=== PATIENT | female | born 1985 | race Caucasian/White ===

== ENCOUNTER 2019-01-28 17:44 | Inpatient (IN) | payer OTHER ==
[~2019-01-28] VITALS: Ht 167.6 cm; Wt 100.9 kg
[2019-01-28 19:00] VITALS: BP 139/75
[2019-01-28] MEDS ORDERED: LACTULOSE 20 GM/30 ML SOLUTION. PO PRN (20:00)
[2019-01-28] MEDS ORDERED: MAGNESIUM HYDROXIDE 2,400 MG/30 ML ORAL.SUSP. PO PRN (20:00)
[2019-01-28] MEDS ORDERED: KETOROLAC 30 MG/ML VIAL. IV PRN (20:00)
[2019-01-28] MEDS ORDERED: ACETAMINOPHEN 325 MG TABLET. PO PRN (20:00)
[2019-01-28] MEDS ORDERED: MORPHINE SULFATE 2 MG/ML VIAL. IV PRN (20:00)
[2019-01-28] MEDS: CYCLOBENZAPRINE 10 MG TABLET. PO PRN (20:48)
[2019-01-28] MEDS: HYDROcodone/APAP 5/325MG 1 TAB TABLET PO PRN (20:49)
[2019-01-28] MEDS: IV NORMAL SALINE 1000ML BAG 1,000 ML IV SCH (20:55)
[2019-01-28] MEDS ORDERED: SENNOSIDES/DOCUSATE 8.6/50MG TABLET. PO SCH (21:00)
[2019-01-28] MEDS ORDERED: TRAZ150T49 PO (22:34)
[2019-01-28] MEDS ORDERED: traZODone 50 MG TABLET. PO SCH (22:45)
[2019-01-28 22:55] VITALS: BP 104/50
[2019-01-28] MEDS: MORPHINE SULFATE 2 MG/ML VIAL. IV PRN (23:54)
[2019-01-29] MEDS: HYDROcodone/APAP 5/325MG 1 TAB TABLET PO PRN ×2 (00:59→05:00)
[2019-01-29] MEDS: CYCLOBENZAPRINE 10 MG TABLET. PO PRN (03:01)
[2019-01-29] MEDS: MORPHINE SULFATE 2 MG/ML VIAL. IV PRN ×5 (03:02→17:24)
[2019-01-29 03:05] VITALS: BP 121/66
[2019-01-29] MEDS: ONDANSETRON PF 4 MG/2 ML VIAL. IV PRN ×2 (05:05→17:24)
[2019-01-29 05:16] LABS: BASO % 0 % (0-3); EOS # 0.1 x10^3/uL (0.0-0.7); EOS % 1 % (0-3); HEMATOCRIT 36.3 % (36.0-47.0); HEMOGLOBIN 12.2 g/dL (12.0-15.5); LYMPH # 1.2 x10^3/uL (1.0-4.8); LYMPH % 13 % (24-48); MEAN CORPUSCULAR HEMOGLOBIN 29 pg (25-35); MEAN CORPUSCULAR HGB CONC 34 g/dL (31-37); MEAN CORPUSCULAR VOLUME 86 fL (79-100); MONO # 0.7 x10^3/uL (0.0-1.1); MONO % 8 % (0-9); NEUT # 7.6 x10^3uL (1.8-7.7); NEUT % 79 % (31-73); PLATELET COUNT 299 x10^3/uL (140-400); RED BLOOD COUNT 4.23 x10^6/uL (3.50-5.40); WHITE BLOOD COUNT 9.7 x10^3/uL (4.0-11.0)
[2019-01-29 05:44] LABS: ALBUMIN 3.1 g/dL (3.4-5.0); ALBUMIN/GLOBULIN RATIO 0.8 (1.0-1.7); CALCIUM 8.4 mg/dL (8.5-10.1); CREATININE 0.9 mg/dL (0.6-1.0); GFR 72.6; POTASSIUM 3.7 mmol/L (3.5-5.1); TOTAL BILIRUBIN 0.3 mg/dL (0.2-1.0)
[2019-01-29] MEDS: IV NORMAL SALINE 1000ML BAG 1,000 ML IV SCH (07:00)
[2019-01-29 07:08] VITALS: BP 113/66
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
[2019-01-29] MEDS ORDERED: LIDO:MAALOX 1:1 20 ML SINGLE DOSE. PO PRN (09:00)
[2019-01-29 10:50] VITALS: BP 93/54
[2019-01-29] MEDS ORDERED: PANTOPRAZOLE IV PUSH 40 MG VIAL. IVP ONE (12:15)
[2019-01-29 14:32] VITALS: BP 105/65
--- NOTE | 2019-01-29 14:49 | NUR ---
SW following for discharge planning. Chart reviewed and HANS RN. Pt lives at home with family and no discharge needs/SW needs indicated at this time.
[2019-01-29] MEDS ORDERED: GADOBUTROL 10 MMOL/10 ML VIAL IV ONE (15:00)
[2019-01-29] MEDS ORDERED: CYCL10TA2 PO (16:21)
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
--- NOTE | 2019-01-29 17:30 | NUR ---
Patient discharged to home. Discharge instructions, medications, and follow up appointments discussed with patient. Patient verbalized understanding. Discharge papers and prescriptions given to patient. IV discontinued. Patient assisted out in wheelchair with staff. Family here to get patient. All belongings with patient.
--- NOTE | 2019-01-29 17:30 | RAD ---
MRI of the lumbar spine without and with contrast 01/29/2019 CLINICAL HISTORY: Low back pain for one week. CRP elevation. TECHNIQUE: Unenhanced T1-weighted and T2-weighted sagittal and axial and inversion recovery sagittal images of the lumbar spine were obtained. After the intravenous administration of 10 cc of Gadavist, enhanced T1-weighted sagittal and axial images of the lumbar spine were obtained. FINDINGS: Comparison is made to the patient's CT scan of the abdomen and pelvis dated 01/28/2019. Very mild S-shaped curvature of the thoracolumbar spine is seen. The morphology and signal characteristics of all the disks of the lumbar spine are within normal limits. The marrow signal of the visualized bony structures is within normal limits. The conus medullaris is normal morphology, position, and signal characteristics. No area of abnormal contrast enhancement is seen. There is no MRI evidence of discitis/osteomyelitis involving the lumbar spine. The changes of relatively mild degenerative disc disease are seen throughout the lumbar disc spaces. These consist of minimal to mild generalized disc bulges and degenerative changes involving the facet joints along with mild ligamentum flavum hypertrophy. These findings do not result in significant central spinal canal or neural foraminal stenosis at any level. IMPRESSION: The changes of relatively mild degenerative disc disease are seen involving lumbar spine as outlined above. These findings do not result in significant central spinal canal or neural foraminal stenosis at any level. Electronically signed by: Jerel Vega MD (01/29/2019 5:27 PM) [id number]
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
== END 2019-01-29 17:29 | disposition home or self-care (01) | DRG 551 ==
LOC: 6 SOUTH 19:07
PROVIDERS: ADMIT Internal Medicine; ATTEND Internal Medicine
DX: S33.5XXA Sprain of ligaments of lumbar spine, initial encounter (principal); N17.0 Acute kidney failure with tubular necrosis; E87.6 Hypokalemia; D72.829 Elevated white blood cell count, unspecified; F90.9 Attention-deficit hyperactivity disorder, unspecified type; K21.9 Gastro-esophageal reflux disease without esophagitis; R79.82 Elevated C-reactive protein (CRP); Z88.0 Allergy status to penicillin; Z91.030 Bee allergy status; Z91.14 Patient's other noncompliance with medication regimen
CPT/HCPCS: 36415; 72158; 80053; 85025; 85651; 86140; A9585; C9113; J2270; J2405; J7030